=== PATIENT | male | born 1950 | race Caucasian/White ===

== ENCOUNTER → 2016-09-14 | Outpatient (CLI) | payer MEDICARE, BC ==
[2016-09-14 11:56] LABS: CHLORIDE,CL 106 mmol/L (98-110); SODIUM,NA 138 mmol/L (136-146)
== END ==
LOC: MW.CHIM 10:50
PROVIDERS: ATTEND Internal Medicine
DX: I10 Essential (primary) hypertension (principal); R97.20 Elevated prostate specific antigen [PSA]; N50.819 Testicular pain, unspecified; R73.01 Impaired fasting glucose; N40.1 Benign prostatic hyperplasia with lower urinary tract symptoms; R35.1 Nocturia; Z12.5 Encounter for screening for malignant neoplasm of prostate; N50.82 Scrotal pain; N40.0 Benign prostatic hyperplasia without lower urinary tract symptoms
CPT/HCPCS: 36415; 80053; 80061; 81001; 85025; 85652; 86140; G0103; G0463

== ENCOUNTER → 2016-09-16 | Outpatient (CLI) | payer MEDICARE, BC ==
--- NOTE | 2016-09-16 10:57 | US ---
EXAMINATION: Scrotal duplex ultrasound HISTORY: Testicular pain COMPARISON: None TECHNIQUE: Grayscale, color Doppler, and spectral Doppler images obtained of the scrotum. FINDINGS: Both the left and right testicles are normal in size, contour, and echogenicity demonstrat ing normal color and spectral Doppler flow. The epididymides appear normal bilaterally. No significa nt hydrocele or scrotal wall thickening. No varicocele. IMPRESSION: Grossly unremarkable scrotal duplex ultrasound.
== END ==
LOC: MW.US 09:09
PROVIDERS: ATTEND Internal Medicine
DX: N50.819 Testicular pain, unspecified (principal)
CPT/HCPCS: 76870; 76870-26; 93976; 93976-26

== ENCOUNTER → 2016-09-21 | Outpatient (CLI) | payer MEDICARE, BC | LOC: MW.CHIM 08:00 | PROVIDERS: ATTEND Internal Medicine | DX: I10 Essential (primary) hypertension (principal) ==

== ENCOUNTER 2020-01-09 17:52 | Emergency (ER) | payer MEDICARE, BC ==
--- NOTE | 2020-01-09 18:08 | EDM.PDOC ---
ED HPI GENERAL MEDICAL PROBLEM - General Chief Complaint: Lower Extremity Injury/Pain Stated Complaint: LEG PAIN Time Seen by Provider: 01/09/20 17:53 Source of Information: Reports: Patient History Limitations: Reports: No Limitations - History of Present Illness INITIAL COMMENTS - FREE TEXT/NARRATIVE: HISTORY AND PHYSICAL: History of present illness: Patient is a 69-year-old male who presents to the ED today for concern of right calf swelling, pain, and redness. Patient states that he has been having issues with this over the past several weeks and [facility] Patient states he did have an ultrasound about a week ago for a possible DVT which was negative. Patient states that it has not been worse but has not improved. Patient states [facility] the [facility] yesterday and was told to come and have it re-ultrasound today. Patient denies any trauma or injury. Patient denies any other symptoms or concerns. Patient denies fever, chills, chest pain, shortness of breath, or cough. Denies headache, neck stiff ness, change in vision, syncope, or near syncope. Denies nausea, vomiting, abdominal pain, diarrhea, constipation, or dysuria. Has not noted any blood in urine or stool. Patient has been eating and drinking appropriately. Review of systems: As per history of present illness and below otherwise all systems reviewed and negative. Past medical history: As per history of present illness and as reviewed below otherwise noncontributory. Surgical history: As per history of present illness and as reviewed below otherwise noncontributory. Social history: See social history for further information Family history: As per history of present illness and as reviewed below otherwise noncontributory. Physical exam: General: Patient is alert, oriented, and in no acute distress. Patient sitting comfortably on exam table. HEENT: Atraumatic, normocephalic, pupils equal and reactive bilaterally, negative for conjunctival pallor or scleral icterus, mucous membranes moist, TMs normal bilaterally, throat clear, neck supple, nontender, trachea midline. No drooling or trismus noted. No meningeal signs. No hot potato voice noted. Lungs: Clear to auscultation, breath sounds equal bilaterally, chest nontender. Heart: S1S2, regular rate and rhythm without overt murmur Abdomen: Soft, nondistended, nontender. Negative for masses or hepatospl enomegaly. Negative for costovertebral tenderness. Pelvis: Stable nontender. Genitourinary: Deferred. Rectal: Deferred. Skin: Intact, warm, dry. No lesions or rashes noted. Extremities: The right calf is mild to moderately edematous in comparison to the left and is slightly erythematous and mildly warm to the touch.'s pedis and posterior tibial pulses are grossly intact with capillary refill less than 2 seconds of the right lower extremity. There is a superficial abrasion to the right popliteal region. Otherwise, atraumatic, negative for cords or calf pain. Neurovascular unremarkable. Neuro: Awake, alert, oriented. Cranial nerves II through XII unremarkable. Cerebellum unremarkable. Motor and sensory unremarkable throughout. Exam nonfocal. Notes: Repeat venous US today is also negative for DVT but does show likely hematoma in the right popliteal region. Patient also has a superficial abrasion of the skin of the right popliteal region so I do suspect some possible trauma that patient does not recall. I also will treat patient for a possible cellulitis. I will use Keflex at this time as patient has a medication interaction with Bactrim. Discussed with patient the importance to have follow-up within 24 to 48 hours with his primary care provider for reevaluation of the calf and if unable to, can return to ED for reevaluation. Signs and symptoms that would prompt return to the ED discussed with patient and expresses understanding. Voices understanding and is agreeable to plan of care. Denies any further questions or concerns at this time. Diagnostics: Venous doppler US Therapeutics: None Prescription: Keflex Impression: Right calf pain Plan: 1. Take medication as prescribed. You can alternate ibuprofen and Tylenol as directed for pain and discomfort. 2. Follow-up with your primary care provider as discussed. Return to the ED as needed and as discussed. Definitive disposition and diagnosis as appropriate pending reevaluation and review of above. Right Lower Leg Pain Score (Numeric/FACES): 4 - Related Data Allergies Allergy/AdvReac Type Severity Reaction Status Date / Time No Known Allergies Allergy Verified 03/20/15 15:18 Home Meds: Home Meds Aspirin [Halfprin] 1 tab PO DAILY 03/20/15 [History] Doxazosin Mesylate [Cardura] 0.5 tab PO DAILY 03/20/15 [History] Multivitamin [Multi-Day Vitamins] 1 tab PO DAILY 03/20/15 [History] Enalapril Maleate 10 mg PO DAILY 01/09/20 [History] Tamsulosin HCl [Flomax] 0.4 mg PO 01/09/20 [History] cephALEXin [Keflex] 500 mg PO Q8H 7 Days #21 cap 01/09/20 [Rx] Past Medical History - Past Health History Medical/Surgical History: Denies Medical/Surgical History Other HEENT History: Bilateral hearing aids, when No aids, hears better on RIGHT Other Respiratory History: Reports 25 yr history of smoking, QUIT 11 yr ago Other Gastrointestinal History: Ingestion Right upper quadrant pain, Treat with OTC Pepcid Other Genitourinary History: BPH Other Musculoskeletal History: Last month slipped in tub and had L-1 injury, doing better residual low back pain Review of Systems - Review of Systems Review Of Systems: Comprehensive ROS is negative, except as noted in HPI. ED EXAM, GENERAL - Physical Exam Exam: See Below (see dictation) Course - Vital Signs Last Recorded V/S: Last Vital Signs Temp 98.0 F 01/09/20 18:04 Pulse 77 01/09/20 18:04 Resp 20 01/09/20 18:04 BP 124/91 H 01/09/20 18:04 Pulse Ox 97 01/09/20 18:04 Departure - Departure Time of Disposition: 19:34 Disposition: Home, Self-Care 01 Clinical Impression: Pain of right calf - Discharge Information Prescriptions: cephALEXin [Keflex] 500 mg PO Q8H 7 Days #21 cap Referrals: PCP,None [Primary Care Provider] - Forms: ED Department Discharge Additional Instructions: The following information is given to patients seen in the emergency department who are being discharged to home. This information is to outline your options for follow-up care. We provide all patients seen in our emergency department with a follow-up referral. The need for follow-up, as well as the timing and circumstances, are variable depending upon the specifics of your emergency department visit. If you don't have a primary care physician on staff, we will provide you with a referral. We always advise you to contact your personal physician following an emergency department visit to inform them of the circumstance of the visit and for follow-up with them and/or the need for any referrals to a consulting spe cialist. The emergency department will also refer you to a specialist when appropriate. This referral assures that you have the opportunity for follow-up care with a specialist. All of these measure are taken in an effort to provide you with optimal care, which includes your follow-up. Under all circumstances we always encourage you to contact your private physician who remains a resource for coordinating your care. When calling for follow-up care, please make the office aware that this follow-up is from your recent emergency room visit. If for any reason you are refused follow-up, please contact the [facility] Emergency Department at and asked to speak to the emergency department charge nurse. [facility] [address] [place] [id number] [facility] [address] [place] [id number] 1. Take medication as prescribed. You can alternate ibuprofen and Tylenol as directed for pain and discomfort. 2. Follow-up with your primary care provider as discussed. Return to the ED as needed and as discussed. Sepsis Event Note (ED) - Focused Exam Vital Signs: Vital Signs Temp Pulse Resp BP Pulse Ox 01/09/20 18:04 98.0 F 77 20 124/91 H 97
--- NOTE | 2020-01-09 19:29 | US ---
Right lower extremity deep venous ultrasound: Duplex and color Doppler evaluation was obtained of the right common femoral, superficial femoral, popliteal, posterior tibial and peroneal veins. Findings: Normal compression and Doppler blood flow. There is a hypoechoic area within the right popliteal fossa which could represent hematoma. This finding measures approximately 6.4 x 1.6 x 2.9 cm. Impression: 1. Hypoechoic area within the popliteal fossa most likely due to hematoma. 2. No evidence of deep venous thrombosis within the right lower extremity. Diagnostic code #3 This report was dictated in MDT
[2020-01-09 19:49] VITALS: BP 134/74; PULSE 53
== END 2020-01-09 19:50 | disposition home or self-care (01) ==
LOC: MW.ED 17:52
DX: S80.211A Abrasion, right knee, initial encounter (principal); M79.661 Pain in right lower leg; Z79.82 Long term (current) use of aspirin; Z87.891 Personal history of nicotine dependence; X58.XXXA Exposure to other specified factors, initial encounter
CPT/HCPCS: 93971-26-RT; 93971-RT; 99283; 99283-25

== ENCOUNTER 2020-03-19 08:53 | Day surgery (SDC) | payer OTHER, MEDICARE, BC ==
[~2020-03-19 08:53] MED LIST: Lactated Ringers 1,000 ML IV SCH; Sodium Chloride 0.9% 10 ML SDV IV PRN; Sodium Chloride 0.9% 10 ML Syringe FLUSH PRN; Sodium Chloride 0.9% 2.5 ML Syringe FLUSH PRN
--- NOTE | 2020-03-19 09:43 | PCM.PREANE ---
Preanesthetic Assessment - Anesthesia/Transfusion/Family Hx Anesthesia History: Prior Anesthesia Without Reaction Other Type of Anesthesia Reaction Comment: Denies any known problem with only 1 prior anesthesia-colonoscopy Family History of Anesthesia Reaction: No Transfusion History: No Prior Transfusion(s) Intubation History: Unknown - Review of Systems General: No Symptoms Pulmonary: No Symptoms Cardiovascular: No Symptoms Gastrointestinal: Other (screening colonoscopy after 10 years) Neurological: No Symptoms Other: Reports: None - Physical Assessment Height: 6 ft Weight: 93.44 kg ASA Class: 2 Mental Status: Alert & Oriented x3 Airway Class: Mallampati = 2 Dentition: Reports: Normal Dentition Thyro-Mental Finger Breadths: 3 Mouth Opening Finger Breadths: 3 ROM/Head Extension: Limited/Partial Lungs: Clear to Auscultation, Normal Respiratory Effort Cardiovascular: Regular Rate, Regular Rhythm - Allergies Allergies/Adverse Reactions: Allergies Allergy/AdvReac Type Severity Reaction Status Date / Time No Known Allergies Allergy Verified 03/13/20 12:16 - Blood Blood Available: No - Anesthesia Plan Pre-Op Medication Ordered: None - Acknowledgements Anesthesia Type Planned: MAC Pt an Appropriate Candidate for the Planned Anesthesia: Yes Alternatives and Risks of Anesthesia Discussed w Pt/Guardian: Yes Pt/Guardian Understands and Agrees with Anesthesia Plan: Yes PreAnesthesia Questionnaire - Past Health History Medical/Surgical History: Denies Medical/Surgical History HEENT History: Reports: Hard of Hearing, Other (See Below) Other HEENT History: wears glasses, has hearing aides but doesn't wear them Cardiovascular History: Reports: Hypertension, Other (See Below) (h/o increased cholesterol- now normal with diet end excercize) Respiratory History: Reports: Other (See Below) Other Respiratory History: Reports 25 yr history of smoking, QUIT 11 yr ago Gastrointestinal History: Reports: Cholelithiasis, Other (See Below) Other Gastrointestinal History: Ingestion Right upper quadrant pain, Treat with OTC Pepcid Genitourinary History: Reports: BPH Other Genitourinary History: BPH Musculoskeletal History: Reports: Back Pain, Chronic, Neck Pain, Chronic Other Musculoskeletal History: Last month slipped in tub and had L-1 injury, doing better residual low back pain Immunologic History: Reports: None - Infectious Disease History Infectious Disease History: Reports: Chicken Pox, Mumps, Rubella - Past Surgical History Head Surgeries/Procedures: Reports: None HEENT Surgical History: Reports: Tonsillectomy GI Surgical History: Reports: Cholecystectomy, Colonoscopy (10 years ago - normal), Hernia, Inguinal - SUBSTANCE USE Tobacco Use Status *Q: Former Tobacco User Tobacco Use Within Last Twelve Months: No Recreational Drug Use History: No - HOME MEDS Home Medications: Home Meds Aspirin [Halfprin] 81 mg PO DAILY 03/20/15 [History] Doxazosin Mesylate [Cardura] 2 mg PO DAILY 03/20/15 [History] Multivitamin [Multi-Day Vitamins] 1 tab PO DAILY 03/20/15 [History] Enalapril Maleate 10 mg PO BEDTIME 01/09/20 [History] Tamsulosin HCl [Flomax] 0.4 mg PO BEDTIME 01/09/20 [History] Ascorbic Acid [Vitamin C] 1,000 mg PO DAILY 03/13/20 [History] Cholecalciferol (Vitamin D3) [Vitamin D3] 5,000 unit PO DAILY 03/13/20 [History] Glucosam/Chond/Collagen/Hyalur [Glucosamine Chondroitin] 1 cap PO DAILY 03/13/20 [History] - CURRENT (IN HOUSE) MEDS Current Meds: Current Medications Lactated Ringer's (Ringers, Lactated) 1,000 mls @ 125 mls/hr IV ASDIRECTED ANGELA Sodium Chloride (Saline Flush) 10 ml FLUSH ASDIRECTED PRN PRN Reason: Keep Vein Open Sodium Chloride (Saline Flush) 2.5 ml FLUSH ASDIRECTED PRN PRN Reason: Keep Vein Open Sodium Chloride (Saline Flush) 10 ml FLUSH ASDIRECTED PRN PRN Reason: Keep Vein Open Sodium Chloride (Saline Flush) 2.5 ml FLUSH ASDIRECTED PRN PRN Reason: Keep Vein Open Sodium Chloride (Normal Saline) 10 ml IV ASDIRECTED PRN PRN Reason: IV Use
[2020-03-19] MEDS ORDERED: Propofol 200 MG/20 ML SDV ONE (10:46)
[2020-03-19] MEDS ORDERED: Midazolam 1 MG/ML 2 ML SDV ONE (10:46)
--- NOTE | 2020-03-19 12:03 | PCM.OPNOTE ---
- General Post-Op/Procedure Note Date of Surgery/Procedure: 03/19/20 Operative Procedure(s): Screening colonoscopy with polypectomy Findings: Transverse colon polyp, sigmoid colon polyp, diverticulosis throughout the colon Pre Op Diagnosis: Screening colonoscopy Post-Op Diagnosis: Diverticulosis, transverse colon polyp, sigmoid colon polyp Anesthesia Technique: [facility] [place] Primary Surgeon: Nivia Waldron Condition: Good Free Text/Narrative:: Intake & Output 03/18/20 03/19/20 03/19/20 22:59 06:59 14:59 Intake Total 800 Balance 800
--- NOTE | 2020-03-19 12:16 | PCM.POSTAN ---
POST ANESTHESIA ASSESSMENT - MENTAL STATUS Mental Status: Alert, Oriented - VITAL SIGNS Vital Signs: Last Vital Signs Temp 36.3 C 03/19/20 09:15 Pulse 57 L 03/19/20 11:40 Resp 13 03/19/20 11:40 BP 115/72 03/19/20 11:40 Pulse Ox 95 03/19/20 11:40 - RESPIRATORY Respiratory Status: Respiratory Rate WNL, Airway Patent, O2 Saturation Stable - CARDIOVASCULAR CV Status: Pulse Rate WNL, Blood Pressure Stable - GASTROINTESTINAL GI Status: No Symptoms - PAIN Pain Score: 0 - POST OP HYDRATION Hydration Status: Adequate & Stable - OBSERVATIONS Free Text/Narrative:: No anesthesia problems
--- NOTE | 2020-03-19 12:17 | PCM48HPAN ---
Post Anesthesia Note - EVALUATION WITHIN 48HRS OF ANESTHETIC Vital Signs in Normal Range: Yes Patient Participated in Evaluation: Yes Respiratory Function Stable: Yes Airway Patent: Yes Cardiovascular Function Stable: Yes Hydration Status Stable: Yes Pain Control Satisfactory: Yes Nausea and Vomiting Control Satisfactory: Yes Mental Status Recovered: Yes Vital Signs: Last Vital Signs Temp 36.3 C 03/19/20 09:15 Pulse 57 L 03/19/20 11:40 Resp 13 03/19/20 11:40 BP 115/72 03/19/20 11:40 Pulse Ox 95 03/19/20 11:40 - COMMENTS/OBSERVATIONS Free Text/Narrative:: No anesthesia problems
[2020-03-19 15:37] VITALS: BP 110/74; PULSE 54
--- NOTE | 2020-03-19 19:39 | OR ---
SURGEON: NIVIA WALDRON MD DATE OF PROCEDURE: 03/19/2020 PREOPERATIVE DIAGNOSIS: Screening colonoscopy. POSTOPERATIVE DIAGNOSES: 1. Diverticulosis. 2. Transverse colon polyp. 3. Sigmoid colon polyp. PROCEDURE PERFORMED: Screening colonoscopy with polypectomy. PRIMARY SURGEON: Nivia Waldron MD ANESTHESIA: MAC. INSTRUMENT USED: Olympus colonoscope. EXTENT OF EXAM: To the cecum. PREPARATION: Good. LIMITATIONS: None. INDICATIONS FOR EXAMINATION: The patient is a 69-year-old male who presents for followup colonoscopy. He had one 10 years ago which was normal. The patient and I discussed the procedure, expected perioperative course, and risks. He verbalized understanding and wishes to proceed. PROCEDURE IN DETAIL: The patient was brought into the endoscopy suite and placed in a left lateral decubitus position. A time-out was completed verifying the patient's name, age, date of , allergies, and procedure to be performed. Monitored anesthesia care was induced and continuous oxygen was provided via nasal cannula throughout the procedure. After adequate sedation was achieved, a digital rectal exam was performed. This exam was grossly normal. A well-lubricated colonoscope was inserted in the rectum and advanced under direct visualization to the level of the cecum. The cecum was identified by both visual and anatomic landmarks. A photograph was taken of the cecal cap as well as with the scope retroflexed within the cecum. The scope was then fully withdrawn while examining the color, texture, anatomy, and integrity of the mucosa from the cecum to the anal canal. The patient was noted to have diverticulosis throughout his colon. In the distal transverse colon, a small sessile polyp was noted. This was removed in piecemeal fashion using cold biopsy forceps. In the distal sigmoid colon, the patient was noted to have a pedunculated polyp. This was removed with a hot snare and sent to pathology, labeled as sigmoid colon polyp. The scope was then brought into the rectum and retroflexed to allow visualization of the anal canal opening. The patient was noted to have mildly enlarged hemorrhoids. A photograph of this was taken. The scope was then straightened out and fully withdrawn. The cecum to anus time was 14 minutes. The patient tolerated the procedure well and was transferred to the PACU in stable condition. ENDOSCOPIC DIAGNOSES: 1. Diverticulosis. 2. Transverse colon polyp. 3. Sigmoid colon polyp. RECOMMENDATIONS: Follow up in clinic in 2 weeks. SUNI BELLO /[id number]
== END 2020-03-19 12:30 | disposition home or self-care (01) ==
LOC: MW.SDS 08:53
PROVIDERS: ATTEND Surgery
DX: Z12.11 Encounter for screening for malignant neoplasm of colon (principal); D12.5 Benign neoplasm of sigmoid colon; K57.30 Diverticulosis of large intestine without perforation or abscess without bleeding; N40.1 Benign prostatic hyperplasia with lower urinary tract symptoms; R35.1 Nocturia; I10 Essential (primary) hypertension; Z79.82 Long term (current) use of aspirin; Z79.899 Other long term (current) drug therapy; Z98.890 Other specified postprocedural states; Z87.891 Personal history of nicotine dependence
CPT/HCPCS: 45380; 45385; 88305; J2250; J2704; J7120

== ENCOUNTER 2022-11-10 06:38 | Day surgery (SDC) | payer OTHER ==
[~2022-11-10 06:38] MED LIST changes: -Sodium Chloride 0.9% 10 ML SDV IV PRN; +Sodium Chloride 0.9% 20 ML SDV IV PRN
[2022-11-10] MEDS ORDERED: Propofol 200 MG/20 ML SDV ONE (07:37)
[2022-11-10] MEDS ORDERED: Water For Injection, Sterile 20 ML ONE (07:40)
[2022-11-10] MEDS ORDERED: Dexmedetomidine 200 MCG/2 ML SDV ONE (07:40)
[2022-11-10 11:44] VITALS: BP 103/63; PULSE 48
== END 2022-11-10 09:03 | disposition home or self-care (01) ==
LOC: MW.SDS 06:38
PROVIDERS: ATTEND Surgery
DX: K31.89 Other diseases of stomach and duodenum (principal); K57.30 Diverticulosis of large intestine without perforation or abscess without bleeding; N40.0 Benign prostatic hyperplasia without lower urinary tract symptoms; I10 Essential (primary) hypertension; K21.9 Gastro-esophageal reflux disease without esophagitis; E78.00 Pure hypercholesterolemia, unspecified; Z86.010 Personal history of colon polyps; Z79.82 Long term (current) use of aspirin; Z79.2 Long term (current) use of antibiotics; Z79.899 Other long term (current) drug therapy; Z87.891 Personal history of nicotine dependence; Z90.49 Acquired absence of other specified parts of digestive tract
CPT/HCPCS: 43239; 45380; J2704; J7120; 00813; 99100; J3490